=== PATIENT | female | born 1990 | race American Indian/Alaskan Native ===

== ENCOUNTER 2020-06-27 18:59 | Emergency (ER) | payer MEDICAID ==
[2020-06-27 19:28] VITALS: BP 131/78
--- NOTE | 2020-06-27 19:35 | Emergency Department Report ---
ED General Adult HPI - General Chief complaint: Skin/Abscess/Foreign Body Stated complaint: GLASS IN RT FOOT Time Seen by Provider: 06/27/20 19:29 Source: patient Mode of arrival: Ambulatory Limitations: No Limitations - History of Present Illness Initial comments: 29-year-old -[place] female patient presents with complaints of right foot pain x3 days. Patient states 1 month ago she stepped on glass and believes that the glasses still in her foot. She rates her pain as a 6/10 in severity and states it only occurs with weight on the foot. She denies any numbness/tingling/weakness in her foot or decreased range of motion. No past medical history per patient. - Related Data Previous Rx's Medication Instructions Recorded Last Taken Type Diclofenac Sodium [Voltaren 1 gm TP QID PRN #1 gel..gram. 06/27/20 Unknown Rx Arthritis Pain] Naproxen [Naprosyn] 500 mg PO BID PRN #14 tablet 06/27/20 Unknown Rx Allergies Allergy/AdvReac Type Severity Reaction Status Date / Time No Known Allergies Allergy Unverified 06/27/20 19:22 ED Review of Systems ROS: Stated complaint: GLASS IN RT FOOT Other details as noted in HPI Constitutional: denies: chills, fever, malaise Respiratory: denies: cough, shortness of breath Cardiovascular: denies: chest pain Musculoskeletal: joint swelling, arthralgia Skin: denies: rash, lesions, change in color Neurological: denies: numbness, paresthesias ED Past Medical Hx - Past Medical History Previous Medical History?: No - Surgical History Past Surgical History?: Yes Additional Surgical History: Breast reduction - Social History Smoking Status: Never Smoker Substance Use Type: None - Medications Home Medications: Home Medications Medication Instructions Recorded Confirmed Last Taken Type Diclofenac Sodium [Voltaren 1 gm TP QID PRN #1 gel..gram. 06/27/20 Unknown Rx Arthritis Pain] Naproxen [Naprosyn] 500 mg PO BID PRN #14 tablet 06/27/20 Unknown Rx ED Physical Exam - General Limitations: No Limitations General appearance: alert, in no apparent distress - Head Head exam: Present: atraumatic, normocephalic - Eye Eye exam: Present: normal appearance. Absent: scleral icterus - Respiratory Respiratory exam: Absent: respiratory distress - Cardiovascular Cardiovascular Exam: Present: regular rate - Extremities Exam Extremities exam: Present: full ROM, other (Small callus and tenderness to palpation noted to distal fifth MT joint on the plantar surface of the foot; no erythema or swelling is noted no obvious foreign body is noted; pedal pulses normal; normal sensation and capillary refill noted). Absent: joint swelling - Back Exam Back exam: Present: full ROM - Neurological Exam Neurological exam: Present: alert, oriented X3, normal gait - Psychiatric Psychiatric exam: Present: normal affect, normal mood - Skin Skin exam: Present: warm, dry, intact, normal color. Absent: rash ED Course Vital Signs 06/27/20 06/27/20 19:21 19:27 Temperature 98.8 F Pulse Rate 60 Respiratory 16 Rate Blood Pressure 131/78 [Right] O2 Sat by Pulse 100 Oximetry ED Medical Decision Making - Medical Decision Making 29-year-old -[place] female patient presents with complaints of right foot pain x3 days. Patient states 1 month ago she stepped on glass and believes that the glasses still in her foot. She rates her pain as a 6/10 in severity and states it only occurs with weight on the foot. She denies any numbness/tingling/weakness in her foot or decreased range of motion. No past medical history per patient. X-rays negative for any acute bony abnormality or foreign body. Will treat for metatarsalgia with NSAIDs. Recommend follow-up with podiatry for further evaluation. Patient is well-appearing, her vitals are normal, she is stable for discharge home. Strict return precautions were discussed in detail with patient who verbalizes understanding. Critical care attestation.: If time is entered above; I have spent that time in minutes in the direct care of this critically ill patient, excluding procedure time. ED Disposition Clinical Impression: Metatarsalgia of right foot Disposition: DC-01 TO HOME OR SELFCARE Is pt being admited?: No Condition: Stable Instructions: Hayden Neuralgia Prescriptions: Naproxen [Naprosyn] 500 mg PO BID PRN #14 tablet PRN Reason: pain Diclofenac Sodium [Voltaren Arthritis Pain] 1 gm TP QID PRN #1 gel..gram. PRN Reason: pain Referrals: NINI CARDONA DPM [Staff Physician] - 3-5 Days
--- NOTE | 2020-06-27 20:39 | XRay Report ---
RIGHT FOOT 3 VIEWS INDICATION / CLINICAL INFORMATION: Distal right fifth metatarsal pain, possible retained glass foreign body. COMPARISON: None available. FINDINGS: BONES and JOINT(S): No acute fracture or subluxation. No significant arthritis. SOFT TISSUES: No radiopaque foreign body or other acute abnormality. ADDITIONAL FINDINGS: None. IMPRESSION: 1. No acute findings. Signer Name: Juan Hooker MD Signed: 06/27/2020 8:35 PM Workstation Name: [id number]
== END 2020-06-27 22:28 | disposition home or self-care (01) ==
LOC: ED 18:59
DX: M77.41 Metatarsalgia, right foot (principal); Z98.890 Other specified postprocedural states; Z79.899 Other long term (current) drug therapy

== ENCOUNTER 2021-03-11 17:00 | Emergency (ER) | payer OTHER, MEDICAID ==
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
[2021-03-11 20:07] VITALS: BP 132/68
== END 2021-03-11 20:06 | disposition home or self-care (01) ==
LOC: ED 17:00
DX: R07.89 Other chest pain (principal); M54.9 Dorsalgia, unspecified; Z79.899 Other long term (current) drug therapy; V89.2XXA Person injured in unspecified motor-vehicle accident, traffic, initial encounter; Y93.89 Activity, other specified; Y92.488 Other paved roadways as the place of occurrence of the external cause; Y99.8 Other external cause status
CPT/HCPCS: 71046; 99283